=== PATIENT | male | born 1990 | race Caucasian/White ===

== ENCOUNTER 2017-03-11 05:52 | Emergency (ER) | payer OTHER ==
[2017-03-11 06:45] LABS: BASOPHIL 0.1 % (0-2); EOSINOPHIL 0.1 % (0-5); HCT 46.1 % (42.0-52.0); HGB 15.9 g/dl (13.2-18.0); LYMPHOCYTE 5.5 % (15-48); MCH 31.9 pg (25.0-31.0); MCHC 34.5 g/dL (32.0-36.0); MCV 92.4 fL (78.0-100.0); MONOCYTE 7.1 % (0-12); MPV 11.1 fL (6.0-9.5); NEUTROPHIL 87.2 % (41-80); PLT 270 K/uL (150-400); RBC 4.99 M/uL (4.70-6.00); RDW 13.2 % (11.5-14.0); WBC 17.9 K/uL (4.0-10.5)
[2017-03-11 07:03] LABS: LACTIC ACID 1.1 mmol/L (0.5-2.2)
[2017-03-11 07:06] LABS: ALBUMIN 4.6 g/dL (3.5-5.0); BILIRUBIN - TOTAL 0.3 mg/dL (0.1-1.0); GLOBULIN (CALCULATION) 3.3 g/dL (2.2-4.2); POTASSIUM 3.8 mmol/L (3.5-5.1); TOTAL PROTEIN 7.9 g/dL (6.4-8.3)
[2017-03-11 08:25] LABS: BILIRUBIN NEGATIVE (NEGATIVE); BLOOD NEGATIVE Ery/uL (NEGATIVE); CLARITY CLEAR (CLEAR); COLOR YELLOW (YELLOW); GLUCOSE (U) NORMAL (NORMAL); KETONE (U) NEGATIVE (NEGATIVE); LEUKOCYTES NEGATIVE Leu/uL (NEGATIVE); NITRITE NEGATIVE (NEGATIVE); PROTEIN NEGATIVE (NEGATIVE); SPECIFIC GRAVITY <=1.005 (1.001-1.030); UROBILINOGEN 0.2 mg/dL (0.2-1.0)
== END 2017-03-11 10:24 | disposition home or self-care (01) ==
LOC: FER 05:52
PROVIDERS: Emergency Medicine Emergency Medical Services
DX: R10.84 Generalized abdominal pain (principal); R19.7 Diarrhea, unspecified; R11.2 Nausea with vomiting, unspecified; E86.9 Volume depletion, unspecified; R82.90 Unspecified abnormal findings in urine; F17.210 Nicotine dependence, cigarettes, uncomplicated; Z87.09 Personal history of other diseases of the respiratory system; Z98.890 Other specified postprocedural states
CPT/HCPCS: 36415; 80053; 81003; 82150; 83605; 83690; 85025; 87040; 87088; J1885; J2270; J2405; Q9967

== ENCOUNTER 2021-06-21 21:36 | Emergency (ER) | payer OTHER ==
[~2021-06-21 21:36] MED LIST: BACTRIM DS TAB1 EACH PO; CLEOCIN300 MG PO; KEFLEX250 MG PO; NYSTATIN 30GM C30 GM TOP
[2021-06-21 23:00] LABS: AMPHETAMINES POSITIVE (NEGATIVE); BARBITURATES NEGATIVE (NEGATIVE); ECSTASY (MDMA) NEGATIVE (NEGATIVE); MARIJUANA (THC) NEGATIVE (NEGATIVE); METHADONE NEGATIVE (NEGATIVE); OPIATES NEGATIVE (NEGATIVE); OXYCODONE NEGATIVE (NEGATIVE)
[2021-06-21] MEDS ORDERED: BACTROBAN NASAL1 GM (23:12)
== END 2021-06-21 23:30 | disposition home or self-care (01) ==
LOC: FER 21:36
PROVIDERS: Emergency Medicine Emergency Medical Services
DX: U07.1 COVID-19 (principal); F41.9 Anxiety disorder, unspecified; F15.10 Other stimulant abuse, uncomplicated; F17.210 Nicotine dependence, cigarettes, uncomplicated
CPT/HCPCS: 36600; 71046; 80305; 82803; 87070; 87880; 94640; 94664